=== PATIENT | female | born 1930 | race Caucasian/White ===

== ENCOUNTER 2018-10-25 13:51 | Emergency (ER) | payer MEDICARE, MEDICAID ==
--- NOTE | 2018-10-25 14:45 | EDM.PDOC ---
ED HPI GENERAL MEDICAL PROBLEM - General Chief Complaint: Lower Extremity Injury/Pain Stated Complaint: LEFT LEG Time Seen by Provider: 10/25/18 14:42 Source of Information: Reports: Patient, Family, RN, RN Notes Reviewed History Limitations: Reports: No Limitations - History of Present Illness INITIAL COMMENTS - FREE TEXT/NARRATIVE: Pt to ER from her own home with daughter and granddaughter with c/o swelling, weeping of the left lower leg. Daughter states the patient lives with her brother (pts son), and when he is at work she is there taking care of her. She states they have been dealing with the swelling of the left lower leg, but yesterday she noticed the weeping of the leg as well as the left great toe and second toe beginning to turn purple. Patient does have ingrown toenails on these two toes as well, but no infection/weeping from the areas. Pt c/o severe pain to the lower leg and foot. Denies N/V/D, fever or chills. 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 Patient has not been taking her pain medication, lasix, etc. Onset: Gradual Duration: Constant, Getting Worse Location: Reports: Lower Extremity, Left Quality: Reports: Pressure, Throbbing Improves with: Reports: None Worsens with: Reports: Movement Associated Symptoms: Reports: No Other Symptoms Left Toe-Hailux Pain Score (Numeric/FACES): 5 - Related Data Allergies Allergy/AdvReac Type Severity Reaction Status Date / Time Penicillins Allergy Rash Verified 10/25/18 14:11 ezetimibe [From Zetia] AdvReac Unknown Muscle Verified 10/25/18 14:11 Aches rosuvastatin calcium AdvReac Unknown Muscle Verified 10/25/18 14:11 [From Crestor] Aches Home Meds: Home Meds Acetaminophen [Tylenol Extra Strength] 1,000 mg PO Q6H PRN 11/24/13 [History] Aspirin [Lonepine Aspirin] 81 mg PO DAILY 11/24/13 [History] Clopidogrel Bisulfate [Clopidogrel] 75 mg PO DAILY 11/24/13 [History] Lutein/Min/Vit C/Vit E Acetate [Ocuvite Lutein] 1 each PO DAILY 11/24/13 [ History] Vitamin B Complex [B Complex] 1 each PO DAILY 11/24/13 [History] Acetaminophen/HYDROcodone [Prichard 325-5 MG] 1 tab PO Q6H PRN #30 tablet 03/04/14 [Rx] Carvedilol [Coreg] 6.25 mg PO BIDM #60 tablet 03/04/14 [Rx] Docusate Sodium/Sennosides [Senna Plus] 1 tab PO BEDTIME #30 tablet 03/04/14 [Rx ] Famotidine [Pepcid] 20 mg PO DAILY #30 tablet 03/04/14 [Rx] Furosemide [Lasix] 10 mg PO DAILY #30 tablet 03/04/14 [Rx] LORazepam [Ativan] 0.5 mg PO Q6H PRN #30 tablet 03/04/14 [Rx] Metoclopramide [Reglan] 10 mg PO ASDIRECTED PRN #30 tablet 03/04/14 [Rx] Potassium Chloride [Klor-Con 10] 20 meq PO DAILY@0900 #30 tab.er 03/04/14 [Rx] Simvastatin [Zocor] 10 mg PO BEDTIME #30 tablet 03/04/14 [Rx] Spironolactone [Aldactone] 12.5 mg PO DAILY #30 tab 03/04/14 [Rx] Tiotropium [Spiriva Handihaler] 18 mcg INH DAILY #30 cap 03/04/14 [Rx] Past Medical History HEENT History: Reports: Impaired Vision, Macular Degeneration Other HEENT History: wears glasses Cardiovascular History: Reports: High Cholesterol, Hypertension, VA, Stents Respiratory History: Reports: COPD Gastrointestinal History: Reports: None Genitourinary History: Reports: None [employer]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 Musculoskeletal History: Reports: Arthritis Neurological History: Reports: None Psychiatric History: Reports: None Endocrine/Metabolic History: Reports: None Hematologic History: Reports: None Immunologic History: Reports: None Oncologic (Cancer) History: Reports: None Dermatologic History: Reports: None - Infectious Disease History Infectious Disease History: Reports: Chicken Pox, Measles, Mumps - Past Surgical History Cardiovascular Surgical History: Reports: Carotid Endarterectomy Musculoskeletal Surgical History: Reports: Knee Replacement Social & Family History - Tobacco Use Smoking Status *Q: Former Smoker Years of Tobacco use: 40 Packs/Tins Daily: 1 Used Tobacco, but Quit: Yes Month/Year Tobacco Last Used: july Second Hand Smoke Exposure: No - Caffeine Use Caffeine Use: Reports: None - Recreational Drug Use Recreational Drug Use: No Review of Systems - Review of Systems Review Of Systems: ROS reveals no pertinent complaints other than HPI. ED EXAM, GENERAL - Physical Exam Exam: See Below Exam Limited By: Other (forgetful at times) General Appearance: Alert, WD/WN, Anxious, Mild Distress (pain in leg/foot) Eye Exam: Bilateral Eye: EOMI, Normal Inspection Ears: Normal External Exam, Hearing Loss Nose: Normal Inspection Throat/Mouth: Normal Inspection, Normal Voice, No Airway Compromise Head: Atraumatic, Normocephalic Neck: Normal Inspection Respiratory/Chest: No Respiratory Distress, Lungs Clear, No Accessory Muscle Use , Chest Non-Tender, Decreased Breath Sounds Cardiovascular: Normal Peripheral Pulses, Regular Rate, Rhythm, No Gallop, No JVD, No Murmur, No Rub Peripheral Pulses: 1+: Dorsalis Pedis (L), 2+: Radial (L), Radial (R), Dorsalis Pedis (R) GI/Abdominal: Normal Bowel Sounds, Soft, Non-Tender (Female) Exam: Deferred Rectal (Female) Exam: Deferred Back Exam: Normal Inspection, Decreased Range of Motion Extremities: Pedal Edema (swelling and weeping to left lower extremity, pedal edema, tenderness, with purple discoloration to the great toe and second toe, extending into the pad of the foot), Joint Swelling, Leg Pain, Limited Range of Motion, Increased Warmth, Redness, Other (erythematous left lower leg) Neurological: Alert, Oriented, Normal Cognition Psychiatric: Normal Affect, Anxious Skin Exam: Warm, Cool (toes cool to touch), Erythema (left lower leg/foot), Increased Warmth (left lower leg/foot), Lymphangitis (swelling and weeping of the left lower leg), Other (purple discoloration of the left great toe and second toe) Lymphatic: No Adenopathy Course - Vital Signs Last Recorded V/S: Last Vital Signs Temp 96 F 10/25/18 14:02 Pulse 89 10/25/18 14:02 Resp 16 10/25/18 14:02 BP 101/68 10/25/18 14:02 Pulse Ox 91 L 10/25/18 14:02 - Orders/Labs/Meds Orders: Active Orders 24 hr Category Date Time Status CULTURE WOUND [RM] Urgent Lab 10/25/18 17:30 Results Labs: Laboratory Tests 10/25/18 10/25/18 10/25/18 Range/Units 15:14 15:14 15:14 WBC 15.5 H (5.0-10.0) 10^3/uL RBC 4.50 (4.2-5.4) 10^6/uL Hgb 14.1 D (12.0-16.0) g/dL Hct 42.8 (37.0-47.0) % MCV 95.1 (80-100) fL MCH 31.3 (27.0-34.0) pg MCHC 32.9 L (33.0-35.0) g/dL Plt Count 235 D (150-450) 10^3/uL Neut % (Auto) 79.2 H (42.2-75.2) % Lymph % (Auto) 12.2 L (20.5-50.1) % [place] % (Auto) 8.4 H (2-8) % Eos % (Auto) 0.0 L (1.0-3.0) % Baso % (Auto) 0.2 (0.0-1.0) % Sodium 132 L (135-145) mmol/L Potassium 5.9 H D (3.6-5.0) mmol/L Chloride 96 L (101-111) mmol/L Carbon Dioxide 23.0 (21.0-31.0) mmol/L Anion Gap 18.9 BUN 33 H (7-18) mg/dL Creatinine 1.5 H (0.6-1.3) mg/dL Est Cr Clr Drug Dosing 18.62 mL/min Estimated GFR (MDRD) 33 BUN/Creatinine Ratio 22.00 Glucose 111 H (74-105) mg/dL Calcium 10.0 (8.4-10.2) mg/dl Total Bilirubin 1.6 H (0.2-1.0) mg/dL AST 23 (10-42) IU/L ALT 13 (10-60) IU/L Alkaline Phosphatase 185 H (42-121) IU/L B-Natriuretic Peptide 104 H (0-100) pg/ml Total Protein 7.1 (6.7-8.2) g/dl Albumin 3.1 L (3.2-5.5) g/dl Globulin 4.0 Albumin/Globulin Ratio 0.78 Meds: Medications Discontinued Medications Generic Name Dose Route Start Last Admin Trade Name Yury PRN Reason Stop Dose Admin Hydrocodone Bitart/Acetaminophen 1 tab 10/25/18 15:02 10/25/18 15:06 Prichard 325-5 Mg PO 10/25/18 15:03 1 tab ONETIME ONE Administration Hydrocodone Bitart/Acetaminophen Confirm 10/25/18 17:15 10/25/18 17:19 Prichard 325-5 Mg Administered 10/25/18 17:16 Not Given Dose 4 tab .ROUTE .STK-MED ONE Clindamycin HCl 450 mg 10/25/18 17:05 10/25/18 17:21 Cleocin PO 10/25/18 17:06 Not Given ONETIME ONE Clindamycin HCl Confirm 10/25/18 17:11 10/25/18 17:21 Cleocin Administered 10/25/18 17:12 Not Given Dose 600 mg .ROUTE .STK-MED ONE Vancomycin HCl 1 gm/ Sodium 250 mls @ 167 mls/hr 10/25/18 17:24 10/25/18 17: 42 Chloride IV 10/25/18 18:53 167 mls/hr ONETIME ONE Administration - Re-Assessments/Exams Free Text/Narrative Re-Assessment/Exam: 10/25/18 16:45 Pt daughter is pt POA. Patient is understanding the situation and is of sound mind at this time. Granddaughter feels the patient can be managed at home with oral antibiotics and dressing changes, and follow up in the clinic on Saturday. Granddaughter works in home health and states she can help care for her grandmother. I explained to the patient and the family that I am concerned about the quick progression of the swelling, weeping, and discoloration of the toes. The right leg and foot have minimal swelling. I told the family that I would prefer the patient be transferred to for vascular surgeon consult. Granddaughter denies the need for that. I did talk with Dr. De La Garza and he agrees, the patient needs to go to [place] and have vascular surgery consult. Family is concerned that the patient will go to [place] and sit in a hospital bed until Saturday when she is seen by vascular surgery. I did call [facility] and spoke directly with Dr. Hollis, vascular surgeon screwhead stoner and polisher. He states he agrees, the patient needs IV antibiotics, as well as prompt consultation by vascular surgery. He states he would see her tonight when admitted. He states he would like a hospitalist to admit the patient. I then talked with Dr. Ortega who agreed to accept the patient for transfer and admission. She states if the family declines, they would absolutely need to sign AMA. I explained to the family that I have discussed this with 2 other doctors and the Vascular Surgeon, and we all agree the best option for the patient is to be transferred to for IV abx and vascular consult. Family is disagreeing amongst themselves. Granddaughter is somewhat hostile and insists that I give them oral antibiotics and pain medications and discharge the patient. I told her that I would not discharge the patient, that they would need to sign AMA. I have explained that they brought their loved one to the ER for evaluation, and we are trying to take the best care of her as we can. I have explained that I would be negligent in my job if I let the patient go home at this time. The risks were explained to the family such as extension of the infection to the blood, the possibility of losing toes, foot, or even lower leg. Daughter and Granddaughter arguing about the disposition of the patient. Granddaughter became very upset, yelling at her mother, left the department. The daughter states she would like the patient transferred to [place]. She states she understands the risks of sending her home, and the necessity for prompt IV abx and further evaluation. This was also discussed directly with the patient. She states understanding and is agreeable to treatment and transfer to [place]. Patient transferred to [place] per ambulance, accepted by Dr. Ortega for admission. 10/26/18 14:00 Departure - Departure Time of Disposition: 18:13 Disposition: DC/Tfer to Acute Hospital 02 Condition: Fair, Serious Clinical Impression: Lymphedema, Discoloration of skin of toe Cellulitis Qualifiers: Site of cellulitis: extremity Site of cellulitis of extremity: lower extremity Laterality: left Qualified Code(s): L03.116 - Cellulitis of left lower limb - Discharge Information *PRESCRIPTION DRUG MONITORING PROGRAM REVIEWED*: No *COPY OF PRESCRIPTION DRUG MONITORING REPORT IN PATIENT ARETHA: No Referrals: Ibrahima Carr SOCIAL WORKER AIDE [Primary Care Provider] - Forms: ED Department Discharge, Interfacility Transfer EMTALA - My Orders Last 24 Hours: My Active Orders 10/25/18 17:30 CULTURE WOUND [RM] Urgent - Assessment/Plan Last 24 Hours: My Active Orders 10/25/18 17:30 CULTURE WOUND [RM] Urgent
[2018-10-25] MEDS ORDERED: Acetaminophen/HYDROcodone 325-5 MG Tab PO ONE (15:02)
[2018-10-25 15:40] LABS: ANION GAP 18.9
[2018-10-25] MEDS ORDERED: Clindamycin HCl 150 MG Cap PO ONE (17:05)
[2018-10-25] MEDS ORDERED: Clindamycin HCl 150 MG Cap ONE (17:11)
[2018-10-25] MEDS ORDERED: Acetaminophen/HYDROcodone 325-5 MG Tab ONE (17:15)
== END 2018-10-25 18:13 ==
LOC: DL.ED 13:51
DX: L03.116 Cellulitis of left lower limb (principal); I89.0 Lymphedema, not elsewhere classified; I25.2 Old myocardial infarction; I10 Essential (primary) hypertension; J44.9 Chronic obstructive pulmonary disease, unspecified; Z87.891 Personal history of nicotine dependence; Z88.0 Allergy status to penicillin; Z88.8 Allergy status to other drugs, medicaments and biological substances; Z79.82 Long term (current) use of aspirin; Z79.899 Other long term (current) drug therapy
CPT/HCPCS: 36415; 80053; 83880; 85025; 87070; 87077; 87186; 96365; 99283; A9270; J3370; J7050